=== PATIENT | female | born 1940 | race Caucasian/White ===

== ENCOUNTER 2017-05-17 15:46 | Outpatient (CLI) | payer MEDICARE ==
--- NOTE | 2017-05-17 17:28 | RAD ---
FOUR VIEWS OF THE LTT KNEE: COMPARISON: None. HISTORY: Left knee pain for 6 months. FINDINGS: Four views left knee show no evidence of acute fracture or dislocation. No degenerative changes are seen. No soft tissue swelling is present. IMPRESSION: Unremarkable exam. POS: [facility]
--- NOTE | 2017-05-17 17:34 | RAD ---
RIGHT HIP 2 VIEWS: Date: 05/17/17 PROVIDED CLINICAL HISTORY: Hip pain for 6 months. FINDINGS: There is no evidence for fracture or other acute osseous abnormality. Alignment appears anatomic. Nicole int spaces appear preserved. No lytic or blastic lesions are radiographically apparent. IMPRESSION: No evidence for an acute osseous abnormality or significant arthropathy involving the right hip. POS: [facility]
== END 2017-05-17 15:47 | disposition home or self-care (01) ==
LOC: TBSIIMAG 15:46
PROVIDERS: ATTEND Neurological Surgery
DX: M25.559 Pain in unspecified hip (principal); M25.569 Pain in unspecified knee; M54.16 Radiculopathy, lumbar region